=== PATIENT | male | born 1995 | race Caucasian/White ===

== ENCOUNTER 2023-02-22 11:53 | Emergency (ER) | payer BC, MEDICAID ==
[~2023-02-22] VITALS: Ht 175.3 cm; Wt 72.0 kg
[2023-02-22 11:59] VITALS: O2SAT 99
[2023-02-22] MEDS ORDERED: LIDOCAINE HCL/PF 1% 10 MG/ML 5ML VIAL INFIL ONE (13:15)
[2023-02-22] MEDS ORDERED: HYDROCODONE/ACETAMINOPHEN 5/325MG TABLET PO ONE (13:45)
[2023-02-22] MEDS ORDERED: TOPUD MT (16:16)
[2023-02-22] MEDS ORDERED: IBUP-1523 MT (16:16)
[2023-02-22 17:00] VITALS: BP 150/72; PULSE 81; RESP 19; TEMP 98.4
== END 2023-02-22 17:06 | disposition home or self-care (01) ==
LOC: ER 12:19
DX: S63.256A Unspecified dislocation of right little finger, initial encounter (principal); V00.131A Fall from skateboard, initial encounter; Y93.89 Activity, other specified; Y92.89 Other specified places as the place of occurrence of the external cause; Y99.8 Other external cause status
CPT/HCPCS: 73130; 26700; 99284; J3490; Z7610